=== PATIENT | female | born 1970 | race African-American/Black ===

== ENCOUNTER 2017-01-07 17:10 | Emergency (ER) | payer OTHER ==
[2017-01-07] MEDS ORDERED: PREDNISONE 20 MG TABLET PO ONE (18:18)
--- NOTE | 2017-01-07 18:33 | ER Document Report ---
ED Medical Screen (RME) - General Chief Complaint: Facial Swelling Stated Complaint: TROUBLE SWALLOWING Mode of Arrival: Ambulatory Information source: Patient Notes: 46 y/o F presents to ED c/o right sided facial swelling. Reports has abscessed tooth which she was seen by dentist and prescribed course of Clindamycin which she states has been taking as prescribed but swelling seems to be worsening. I have greeted and performed a rapid initial assessment of this patient. A comprehensive ED assessment and evaluation of the patient, analysis of test results and completion of the medical decision making process will be conducted by additional ED providers. TRAVEL OUTSIDE OF THE [place] IN LAST 30 DAYS: No - Related Data Allergies/Adverse Reactions: aspirin [Aspirin] Allergy (Verified 01/07/17 18:16) Past Medical History - Social History Chew tobacco use (# tins/day): No Frequency of alcohol use: None Drug Abuse: None Renal/ Medical History: Denies: Hx Peritoneal Dialysis Past Surgical History: Reports: Hx Section, Hx Cholecystectomy - Immunizations Immunizations up to date: No Hx Diphtheria, Pertussis, Tetanus Vaccination: Yes Physical Exam - Vital signs Vitals: Temp Pulse Resp BP Pulse Ox 98.2 F 104 H 16 146/70 H 100 01/07/17 18:14 01/07/17 18:14 01/07/17 18:14 01/07/17 18:14 01/07/17 18:14 - General General appearance: Appears well, Alert In distress: None - Respiratory Respiratory status: No respiratory distress Breath sounds: Normal Course - Vital Signs Vital signs: Temp Pulse Resp BP Pulse Ox 98.2 F 104 H 16 146/70 H 100 01/07/17 18:14 01/07/17 18:14 01/07/17 18:14 01/07/17 18:14 01/07/17 18:14
[2017-01-07 18:43] LABS: ABSOLUTE BASOPHILS # (AUTO) 0.1 10^3/uL (0.0-0.2); ABSOLUTE EOSINOPHILS # (AUTO) 0.1 10^3/uL (0.0-0.6); ABSOLUTE LYMPHOCYTES (AUTO) 3.5 10^3/uL (0.5-4.7); ABSOLUTE MONOCYTES (AUTO) 0.9 10^3/uL (0.1-1.4); ABSOLUTE NEUT (AUTO) 9.6 10^3/uL (1.7-8.2); BASOPHILS % (AUTO) 0.5 % (0-2); EOSINOPHILS % (AUTO) 0.4 % (0-6); HEMATOCRIT 34.6 % (36.0-47.0); HEMOGLOBIN 10.7 g/dL (12.0-15.5); HGB HCT DIFFERENCE -2.5; LYMPHOCYTES % (AUTO) 24.6 % (13-45); MEAN CORPUSCULAR HGB CONC 30.8 g/dL (32.0-36.0); MEAN CORPUSCULAR VOLUME 75 fl (80-97); MONOCYTES % (AUTO) 6.5 % (3-13); RED BLOOD COUNT 4.64 10^6/uL (3.72-5.28); RED CELL DISTRIBUTION WIDTH 18.8 % (11.5-14.0); WHITE BLOOD COUNT 14.2 10^3/uL (4.0-10.5)
[2017-01-07 19:00] LABS: ALANINE AMINOTRANSFERASE 24 U/L (9-52); ALBUMIN 4.9 g/dL (3.5-5.0); ALKALINE PHOSPHATASE 86 U/L (38-126); ANION GAP 15 (5-19); ASPARTATE AMINO TRANSFERASE 20 U/L (14-36); BILIRUBIN,TOTAL 0.7 mg/dL (0.2-1.3); BLOOD UREA NITROGEN 4 mg/dL (7-20); CALCIUM 10.4 mg/dL (8.4-10.2); CARBON DIOXIDE 22 mmol/L (22-30); CHLORIDE 101 mmol/L (98-107); CREATININE RESULT 0.57 mg/dL (0.52-1.25); GLUCOSE 192 mg/dL (75-110); POTASSIUM 4.1 mmol/L (3.6-5.0); SODIUM 138.4 mmol/L (137-145); TOTAL PROTEIN 8.5 g/dL (6.3-8.2)
[2017-01-07 19:35] LABS: APPEARANCE,URINE CLEAR; BILIRUBIN,URINE NEGATIVE (NEGATIVE); GLUCOSE, URINE 150 mg/dL (NEGATIVE); KETONES,URINE NEGATIVE (NEGATIVE); LEUKOCYTE ESTERASE,URINE NEGATIVE (NEGATIVE); NITRITE,URINE NEGATIVE (NEGATIVE); PROTEIN,URINE NEGATIVE (NEGATIVE); URINE SPECIFIC GRAVITY 1.002; UROBILINOGEN,URINE NEGATIVE mg/dL (<2.0)
[2017-01-07] MEDS ORDERED: CLINDAMYCIN PHOSPHATE INJ 300 MG/2 ML SDV IM ONE (20:30)
--- NOTE | 2017-01-07 20:31 | ER Document Report ---
ED Oral Problem <DARNELL MARI - Last Filed: 01/07/17 20:33> - General Mode of Arrival: Ambulatory Information source: Patient TRAVEL OUTSIDE OF THE [place] IN LAST 30 DAYS: No - HPI Patient complains to provider of: Swelling of face - right Onset: This morning Associated symptoms: Other - see above <MATY CHAMORRO - Last Filed: 01/07/17 23:51> - General Chief Complaint: Facial Swelling Stated Complaint: TROUBLE SWALLOWING Notes: 46 year old female presents to the ED complaining of an abscess that presented this morning secondary to chipping her right upper incisor yesterday while eating ribs. Patient reports that the pain started yesterday, but she woke up today with the abscess. The patient was seen by her dentist today and was prescribed Clindamycin. Dentist instructed the patient to finish her antibiotic course and then return to have the tooth extracted. Patient reports that since she was given steroids, her facial swelling has decreased dramatically. (MATY CHAMORRO) - Related Data Allergies/Adverse Reactions: aspirin [Aspirin] Allergy (Verified 01/07/17 18:16) Past Medical History - General Information source: Patient - Social History Smoking Status: Current Every Day Smoker Chew tobacco use (# tins/day): No Frequency of alcohol use: None Drug Abuse: None Family History: Reviewed & Not Pertinent Patient has suicidal ideation: No Patient has homicidal ideation: No - Medical History Medical History: Negative Renal/ Medical History: Denies: Hx Peritoneal Dialysis Past Surgical History: Reports: Hx Section, Hx Cholecystectomy - Immunizations Immunizations up to date: No Hx Diphtheria, Pertussis, Tetanus Vaccination: Yes <MATY CHAMORRO - Last Filed: 01/07/17 23:51> Review of Systems - Review of Systems Constitutional: No symptoms reported EENT: See HPI, Other - right facial swelling secondary to chipped right upper incisor tooth Cardiovascular: No symptoms reported Respiratory: No symptoms reported Gastrointestinal: No symptoms reported Genitourinary: No symptoms reported Female Genitourinary: No symptoms reported Musculoskeletal: No symptoms reported Skin: No symptoms reported Hematologic/Lymphatic: No symptoms reported Neurological/Psychological: No symptoms reported -: Yes All other systems reviewed and negative <MATY CHAMORRO - Last Filed: 01/07/17 23:51> Physical Exam <DARNELL MARI - Last Filed: 01/07/17 20:33> - General General appearance: Alert In distress: None - HEENT Head: Atraumatic, Other - Right facial swelling with no fluctuance, active drainage, or active drooling.. No: Normocephalic Eyes: Normal Extraocular movements intact: Yes Pupils: PERRL Mouth/Lips: Other - Right lateral upper incisor is chipped. Neck: Normal, Other - No trismus - Respiratory Respiratory status: No respiratory distress Breath sounds: Normal. No: Stridor - Cardiovascular Rhythm: Regular Heart sounds: Normal auscultation - Abdominal Inspection: Normal - Back Back: Normal - Extremities General upper extremity: Normal inspection, Normal ROM General lower extremity: Normal inspection, Normal ROM - Neurological Neuro grossly intact: Yes Cognition: Normal Orientation: AAOx4 Ramy Coma Scale Eye Opening: Spontaneous Ramy Coma Scale Verbal: Oriented [place] Coma Scale Motor: Obeys Commands [place] Coma Scale Total: 15 Speech: Normal - Psychological Associated symptoms: Normal affect, Normal mood - Skin Skin Temperature: Warm Skin Moisture: Dry Skin Color: Normal <MATY CHAMORRO - Last Filed: 01/07/17 23:51> - Vital signs Vitals: Temp Pulse Resp BP Pulse Ox 98.2 F 104 H 16 146/70 H 100 01/07/17 18:14 01/07/17 18:14 01/07/17 18:14 01/07/17 18:14 01/07/17 18:14 (DARNELL MARI) (MATY CHAMORRO) Course - Laboratory Result Diagrams: 01/07/17 18:30 01/07/17 18:30 <DARNELL MARI - Last Filed: 01/07/17 20:33> - Laboratory Result Diagrams: 01/07/17 18:30 01/07/17 18:30 <MATY CHAMORRO - Last Filed: 01/07/17 23:51> - Re-evaluation Re-evalutation: 01/07/17 20:31 I personally performed the services described in the documentation, reviewed and edited the documentation which was dictated to my scribe in my presence, and it accurately records my words and actions. Patient seen and evaluated in the emergency Department chief complaint of dental abscess. Patient started having a toothache yesterday when saw her dentist today he started her on clindamycin she's taken 2 doses of that she went home took a nap woke up her face was swollen. She wanted to make sure nothing was problematic with the swelling. She had been given prednisone by the [facility] provider prior to this. On examination she is well-appearing nontoxic in no acute distress the chart says trouble swallowing she doesn't have any trouble swallowing difficulty breathing respiratory distress trismus stridor or drooling. She has a localized facial swelling without identifiable abscess drainage she is well-appearing nontoxic there is no concern for spreading into the airway. Gave her IM injection of clindamycin discharged on the antibiotics that she's on follow-up with a dentist as directed and discussed reasons for ED return sooner (DARNELL MARI) - Vital Signs Vital signs: Temp Pulse Resp BP Pulse Ox 97.6 F 88 18 115/88 H 96 01/07/17 21:35 01/07/17 21:35 01/07/17 21:35 01/07/17 21:35 01/07/17 21:35 (DARNELL MARI) (MATY CHAMORRO) - Laboratory Laboratory results interpreted by nd: 01/07/17 01/07/17 01/07/17 18:30 18:30 19:24 WBC 14.2 H Hgb 10.7 L Hct 34.6 L MCV 75 L MCH 23.0 L MCHC 30.8 L RDW 18.8 H Absolute Neutrophils 9.6 H BUN 4 L Glucose 192 H Calcium 10.4 H Total Protein 8.5 H Urine Glucose (UA) 150 H (DARNELL MARI) (MATY CHAMORRO) Discharge <DARNELL MARI - Last Filed: 01/07/17 20:33> <MATY CHAMORRO - Last Filed: 01/07/17 23:51> - Discharge Clinical Impression: Dental abscess Condition: Stable Disposition: HOME, SELF-CARE Instructions: Abscess ([facility]) Additional Instructions: Abscess You have an abscess (boil). This a pus-forming infection, usually due to staph. Some boils may be left to drain on their own, but most require lancing. From the time the tender lump first appears, it may be three or four days before the abscess is ready to carolann. Local heat and rest help at this stage of treatment. An antibiotic may prevent spread of the infection. Once the abscess is opened, packing may be placed into it. This is done so pus is not sealed inside by premature closure of the cavity. The packing will be removed at your follow-up visit or you may be advised to remove it yourself at home. Sometimes this packing must be replaced a few times during healing. The wound will heal with surprisingly little scar. Depending on the size and location of an abscess, healing can take one to four weeks. You may shower and wash the area around the incision site two or three times a day. Antibiotics may be prescribed, but are usually not necessary after an abscess has been drained. If you develop fever, chilling, worsening pain, or increasing swelling in the area, call the doctor or return immediately. Operative dental physician as prescribed return for increasing worsening or new symptoms Forms: Return to Work Scribe Documentation - Scribe Written by Venancio:: Venancio Pfeiffer, 01/07/2017 2215 acting as scribe for :: Ghassan <MATY CHAMORRO - Last Filed: 01/07/17 23:51>
[2017-01-07 21:41] VITALS: BP 115/88
== END 2017-01-07 21:30 | disposition home or self-care (01) ==
LOC: ER 17:10
DX: K04.7 Periapical abscess without sinus (principal); R22.0 Localized swelling, mass and lump, head; F17.210 Nicotine dependence, cigarettes, uncomplicated
CPT/HCPCS: 99283; 96372; 36415; 85025; 80053; 81001; J7512

== ENCOUNTER 2017-05-07 16:39 | Emergency (ER) | payer OTHER ==
--- NOTE | 2017-05-07 17:37 | ER Document Report ---
ED Medical Screen (RME) - General Chief Complaint: Nausea/Vomiting/Diarrhea Stated Complaint: STOMACH PAIN Time Seen by Provider: 05/07/17 17:29 Notes: The patient is a 46-year-old female who presents with intermittent mid abdominal pain for the past 2 weeks. She is also having nausea and nonbloody vomiting with about 3 episodes of watery diarrhea a day. She is drinking Pedialyte and eating crackers for the past 2 weeks. PE: soft, non-tender abdomen, normal bowel sounds I have greeted and performed a rapid initial assessment of this patient. A comprehensive ED assessment and evaluation of the patient, analysis of test results and completion of the medical decision making process will be conducted by additional ED providers. TRAVEL OUTSIDE OF THE [place] IN LAST 30 DAYS: No - Related Data Allergies/Adverse Reactions: aspirin [Aspirin] Allergy (Verified 05/07/17 17:00) Home Medications: Current Home Medications No Home Medications 05/07/17 [History] Past Medical History Renal/ Medical History: Denies: Hx Peritoneal Dialysis Past Surgical History: Reports: Hx Section, Hx Cholecystectomy - Immunizations Immunizations up to date: No Hx Diphtheria, Pertussis, Tetanus Vaccination: Yes Physical Exam - Vital signs Vitals: Temp Pulse Resp BP Pulse Ox 98.2 F 92 16 141/66 H 100 05/07/17 17:00 05/07/17 17:00 05/07/17 17:00 05/07/17 17:00 05/07/17 17:00 Course - Vital Signs Vital signs: Temp Pulse Resp BP Pulse Ox 98.2 F 92 16 141/66 H 100 05/07/17 17:00 05/07/17 17:00 05/07/17 17:00 05/07/17 17:00 05/07/17 17:00
[2017-05-07 18:09] LABS: ABSOLUTE EOSINOPHILS # (AUTO) 0.1 10^3/uL (0.0-0.6); ABSOLUTE LYMPHOCYTES (AUTO) 3.1 10^3/uL (0.5-4.7); ABSOLUTE MONOCYTES (AUTO) 0.6 10^3/uL (0.1-1.4); ABSOLUTE NEUT (AUTO) 5.8 10^3/uL (1.7-8.2); BASOPHILS % (AUTO) 0.4 % (0-2); EOSINOPHILS % (AUTO) 1.2 % (0-6); HEMATOCRIT 33.6 % (36.0-47.0); HEMOGLOBIN 10.3 g/dL (12.0-15.5); HGB HCT DIFFERENCE -2.7; MEAN CORPUSCULAR HEMOGLOBIN 22.3 pg (27.0-33.4); MEAN CORPUSCULAR HGB CONC 30.8 g/dL (32.0-36.0); MEAN CORPUSCULAR VOLUME 73 fl (80-97); MONOCYTES % (AUTO) 6.3 % (3-13); RED BLOOD COUNT 4.63 10^6/uL (3.72-5.28); RED CELL DISTRIBUTION WIDTH 19.5 % (11.5-14.0); SEGMENTED NEUTROPHILS % (AUTO) 60.1 % (42-78); WHITE BLOOD COUNT 9.6 10^3/uL (4.0-10.5)
[2017-05-07 18:25] LABS: ALANINE AMINOTRANSFERASE 37 U/L (9-52); ALBUMIN 4.5 g/dL (3.5-5.0); ALKALINE PHOSPHATASE 79 U/L (38-126); ANION GAP 14 (5-19); ASPARTATE AMINO TRANSFERASE 31 U/L (14-36); BILIRUBIN,DIRECT 0.3 mg/dL (0.0-0.4); BILIRUBIN,TOTAL 0.5 mg/dL (0.2-1.3); BLOOD UREA NITROGEN 4 mg/dL (7-20); CARBON DIOXIDE 25 mmol/L (22-30); CHLORIDE 101 mmol/L (98-107); CREATININE RESULT 0.64 mg/dL (0.52-1.25); GLUCOSE 126 mg/dL (75-110); LIPASE 35.9 U/L (23-300); POTASSIUM 4.3 mmol/L (3.6-5.0); TOTAL PROTEIN 8.4 g/dL (6.3-8.2)
[2017-05-07 18:36] LABS: APPEARANCE,URINE TURBID; BILIRUBIN,URINE NEGATIVE (NEGATIVE); GLUCOSE, URINE NEGATIVE (NEGATIVE); KETONES,URINE TRACE mg/dL (NEGATIVE); LEUKOCYTE ESTERASE,URINE TRACE (NEGATIVE); NITRITE,URINE NEGATIVE (NEGATIVE); PROTEIN,URINE 30 mg/dL (NEGATIVE); URINE SPECIFIC GRAVITY 1.031; UROBILINOGEN,URINE NEGATIVE mg/dL (<2.0)
--- NOTE | 2017-05-07 19:19 | ER Document Report ---
ED GI/ - General Chief Complaint: Nausea/Vomiting/Diarrhea Stated Complaint: STOMACH PAIN Time Seen by Provider: 05/07/17 17:29 Mode of Arrival: Ambulatory Information source: Patient TRAVEL OUTSIDE OF THE [place] IN LAST 30 DAYS: No - HPI Patient complains to provider of: Abdominal pain, Diarrhea Onset: Other - 2 weeks Timing/Duration: Persistent, Waxing and waning Quality of pain: Achy, Cramping Severity at maximum: Moderate Severity in ED: Moderate Pain Level: 2 Associated symptoms: Nausea, Vomiting Notes: 05/07/17 19:14 Patient is a 46-year-old female who presents to the emergency room complaining of crampy abdominal pain with diarrhea that has been going on for 2 weeks, she denies any blood in her diarrhea, just states it is liquid in nature, she does have intermittent vomiting at times, but denies any fever, no dysuria, sick contacts, no questionable food intake, no recent antibiotic use, no recent traveling - Related Data Allergies/Adverse Reactions: aspirin [Aspirin] Allergy (Verified 05/07/17 17:00) Past Medical History - General Information source: Patient - Social History Smoking Status: Current Every Day Smoker Chew tobacco use (# tins/day): No Frequency of alcohol use: Occasional Drug Abuse: None Family History: Reviewed & Not Pertinent Patient has suicidal ideation: No Patient has homicidal ideation: No Renal/ Medical History: Denies: Hx Peritoneal Dialysis Past Surgical History: Reports: Hx Section, Hx Cholecystectomy, Hx Tubal Ligation - Immunizations Immunizations up to date: No Hx Diphtheria, Pertussis, Tetanus Vaccination: Yes Review of Systems - Review of Systems Constitutional: No symptoms reported EENT: No symptoms reported Cardiovascular: No symptoms reported Respiratory: No symptoms reported Gastrointestinal: See HPI Genitourinary: No symptoms reported Female Genitourinary: No symptoms reported Musculoskeletal: No symptoms reported Skin: No symptoms reported Hematologic/Lymphatic: No symptoms reported Neurological/Psychological: No symptoms reported -: Yes All other systems reviewed and negative Physical Exam - Vital signs Vitals: Temp Pulse Resp BP Pulse Ox 98.2 F 92 16 141/66 H 100 05/07/17 17:00 05/07/17 17:00 05/07/17 17:00 05/07/17 17:00 05/07/17 17:00 Interpretation: Normal - General General appearance: Appears well, Alert - HEENT Head: Normocephalic, Atraumatic Eyes: Normal Pupils: PERRL - Respiratory Respiratory status: No respiratory distress Chest status: Nontender Breath sounds: Normal Chest palpation: Normal - Cardiovascular Rhythm: Regular Heart sounds: Normal auscultation Murmur: No - Abdominal Inspection: Normal Distension: No distension Bowel sounds: Normal Tenderness: Tender - Suprapubic Organomegaly: No organomegaly - Back Back: Normal, Nontender - Extremities General upper extremity: Normal inspection, Nontender, Normal color, Normal ROM , Normal temperature General lower extremity: Normal inspection, Nontender, Normal color, Normal ROM , Normal temperature, Normal weight bearing. No: Abdoulaye's sign - Neurological Neuro grossly intact: Yes Cognition: Normal Orientation: AAOx4 Ramy Coma Scale Eye Opening: Spontaneous [place] Coma Scale Verbal: Oriented [place] Coma Scale Motor: Obeys Commands [place] Coma Scale Total: 15 Speech: Normal Motor strength normal: LUE, RUE, LLE, RLE Sensory: Normal - Psychological Associated symptoms: Normal affect, Normal mood - Skin Skin Temperature: Warm Skin Moisture: Dry Skin Color: Normal Course - Re-evaluation Re-evalutation: 05/07/17 19:16 Patient lab findings were discussed with patient at bedside which are consistent with urinary tract infection, she unfortunately was not able to provide us with a stool sample while in the emergency room, he will be started on antibiotics for treatment of the urinary tract infection and advised to follow-up with a primary care provider or return if symptoms worsen, patient acknowledges understanding and agreement with this plan - Vital Signs Vital signs: Temp Pulse Resp BP Pulse Ox 98.2 F 92 16 141/66 H 100 05/07/17 17:00 05/07/17 17:00 05/07/17 17:00 05/07/17 17:00 05/07/17 17:00 - Laboratory Result Diagrams: 05/07/17 17:45 05/07/17 17:45 Laboratory results interpreted by me: 05/07/17 05/07/17 05/07/17 17:45 17:45 17:45 Hgb 10.3 L Hct 33.6 L MCV 73 L MCH 22.3 L MCHC 30.8 L RDW 19.5 H BUN 4 L Glucose 126 H Total Protein 8.4 H Urine Protein 30 H Urine Ketones TRACE H Ur Leukocyte Esterase TRACE H Discharge - Discharge Clinical Impression: Urinary tract infection Qualifiers: Urinary tract infection type: site unspecified Hematuria presence: without hematuria Qualified Code(s): N39.0 - Urinary tract infection, site not specified Diarrhea Qualifiers: Diarrhea type: unspecified type Qualified Code(s): R19.7 - Diarrhea, unspecified Condition: Stable Disposition: HOME, SELF-CARE Instructions: Antinausea Medication ([facility]), Diarrhea, Nonspecific ([facility]), Urinary Tract Infection ([facility]) Additional Instructions: Follow up with your primary care provider in one to 2 days. Return to the emergency room immediately if symptoms worsen or any additional concerns. Prescriptions: Ciprofloxacin HCl [Cipro 500 mg Tablet] 500 mg PO BID #20 tablet Ondansetron [Zofran Odt 4 mg Tablet] 1 - 2 tab PO Q4H #10 tab.rapdis Forms: Return to Work
[2017-05-07] MEDS ORDERED: ONDANSETRON ODT 4 MG TAB (6 TAB/DSPK) PO PRN (19:20)
[2017-05-07] MEDS ORDERED: CIPROFLOXACIN HCL 500 MG TABLET PO ONE (19:20)
[2017-05-07 21:08] VITALS: BP 136/72
== END 2017-05-07 19:34 | disposition home or self-care (01) ==
LOC: ER 16:39
DX: N39.0 Urinary tract infection, site not specified (principal); R19.7 Diarrhea, unspecified; R11.2 Nausea with vomiting, unspecified; R10.9 Unspecified abdominal pain; F17.200 Nicotine dependence, unspecified, uncomplicated; Z88.6 Allergy status to analgesic agent; Z90.49 Acquired absence of other specified parts of digestive tract; Z98.51 Tubal ligation status
CPT/HCPCS: 36415; 80053; 81001; 83690; 85025; 99284

== ENCOUNTER 2018-07-17 11:44 | Emergency (ER) | payer OTHER ==
[2018-07-17] MEDS ORDERED: ONDANSETRON HCL INJ/PF 4 MG/2 ML SDV IV ONE (12:53)
[2018-07-17] MEDS ORDERED: RINGERS SOLUTION,LACTATED 1,000 ML IV ONE (12:53)
--- NOTE | 2018-07-17 12:54 | ER Document Report ---
ED GI/ - General Chief Complaint: Nausea/Vomiting/Diarrhea Stated Complaint: ABDOMINAL PAIN Time Seen by Provider: 07/17/18 12:52 Mode of Arrival: Ambulatory Information source: Patient Notes: Patient presents complaining of generalized abdominal pain with nausea vomiting and diarrhea for the past month off and on. She states she is vomited twice today and has not had any additional diarrhea after taking loperamide earlier this morning. Patient states that she has had a generalized cramping to the abdomen. Patient states she has taken penicillin about 3 weeks ago but only for a few days. Patient denies any recent travel. TRAVEL OUTSIDE OF THE [place] IN LAST 30 DAYS: No - HPI Patient complains to provider of: Abdominal pain, Diarrhea, Vomiting Onset: Other - 1 month Timing/Duration: Persistent Quality of pain: Cramping Pain Level: 1 Location: Other - Generalized abdomen Associated symptoms: Diarrhea, Nausea, Vomiting. denies: Blood in emesis, Blood in stool, Constipation, Urinary hesitancy, Urinary frequency, Urinary retention, Urinary urgency Exacerbated by: Denies Relieved by: Denies Similar symptoms previously: No Recently seen / treated by doctor: No - Related Data Allergies/Adverse Reactions: aspirin [Aspirin] Allergy (Verified 07/17/18 11:47) Past Medical History - General Information source: Patient - Social History Smoking Status: Current Every Day Smoker Smoking Education Provided: Yes Drug Abuse: None Occupation: audit specialist Family History: Reviewed & Not Pertinent - Medical History Medical History: Negative Renal/ Medical History: Denies: Hx Peritoneal Dialysis Past Surgical History: Reports: Hx Section, Hx Cholecystectomy, Hx Tubal Ligation - Immunizations Immunizations up to date: No Hx Diphtheria, Pertussis, Tetanus Vaccination: Yes Review of Systems - Review of Systems Constitutional: No symptoms reported. denies: Fever, Recent illness EENT: No symptoms reported Cardiovascular: No symptoms reported. denies: Chest pain Respiratory: No symptoms reported. denies: Cough, Short of breath Gastrointestinal: Abdominal pain, Diarrhea, Nausea, Vomiting. denies: Blood streaked bowels Genitourinary: No symptoms reported. denies: Dysuria, Flank pain Female Genitourinary: No symptoms reported Musculoskeletal: No symptoms reported. denies: Back pain Skin: No symptoms reported Hematologic/Lymphatic: No symptoms reported Neurological/Psychological: No symptoms reported Physical Exam - Vital signs Vitals: Temp Pulse Resp BP Pulse Ox 98.4 F 95 16 140/79 H 100 07/17/18 12:34 07/17/18 12:34 07/17/18 12:34 07/17/18 12:34 07/17/18 12:34 - General General appearance: Appears well, Alert In distress: None - HEENT Head: Normocephalic, Atraumatic Eyes: Normal Conjunctiva: Normal Nasal: Normal Mouth/Lips: Normal Mucous membranes: Normal Neck: Normal, Supple. No: Lymphadenopathy - Respiratory Respiratory status: No respiratory distress Chest status: Nontender Breath sounds: Normal. No: Rales, Rhonchi, Stridor, Wheezing Chest palpation: Normal - Cardiovascular Rhythm: Regular Heart sounds: S1 appreciated, S2 appreciated Murmur: No - Abdominal Inspection: Normal Distension: No distension Bowel sounds: Normal Tenderness: Tender - Generalized abdominal tenderness Organomegaly: No organomegaly - Back Back: Normal, Nontender. No: CVA tenderness - Extremities General upper extremity: Normal inspection, Normal ROM General lower extremity: Normal inspection, Normal ROM - Neurological Neuro grossly intact: Yes Cognition: Normal Ramy Coma Scale Eye Opening: Spontaneous Ramy Coma Scale Verbal: Oriented [place] Coma Scale Motor: Obeys Commands [place] Coma Scale Total: 15 - Psychological Associated symptoms: Normal affect, Normal mood - Skin Skin Temperature: Warm Skin Moisture: Dry Skin Color: Normal Course - Re-evaluation Re-evalutation: 07/17/18 15:51 Patient's abdomen soft, nontender. Patient denies any nausea at this time. Patient has not had any diarrhea during ER stay. Patient states symptoms have been going on for the past month. Patient without any electrolyte abnormality. Patient encouraged to follow-up with GI specialist for further evaluation. Patient presents with abdominal pain without signs of peritonitis or other life- threatening or serious etiology. Patient appears stable for discharge and has been instructed to return immediately if the symptoms worsen in any way, or in 8 -12 hours if not improved for reevaluation. The patient has been instructed to return if the symptoms worsen or change in any way. - Vital Signs Vital signs: Temp Pulse Resp BP Pulse Ox 98.6 F 82 16 120/62 98 07/17/18 16:04 07/17/18 16:04 07/17/18 12:34 07/17/18 16:04 07/17/18 16:04 - Laboratory Result Diagrams: 07/17/18 13:35 07/17/18 13:35 Laboratory results interpreted by me: 07/17/18 07/17/18 13:35 13:35 Hgb 11.3 L Hct 35.9 L MCV 72 L MCH 22.7 L MCHC 31.4 L RDW 20.4 H Plt Count 718 H BUN 2 L Glucose 114 H Total Protein 8.4 H Labs- Entire Visit 07/17/18 07/17/18 07/17/18 13:35 13:35 13:35 WBC 9.0 RBC 4.96 Hgb 11.3 L Hct 35.9 L MCV 72 L MCH 22.7 L MCHC 31.4 L RDW 20.4 H Plt Count 718 H Seg Neutrophils % 54.3 Lymphocytes % 39.3 Monocytes % 4.7 Eosinophils % 0.7 Basophils % 1.0 Absolute Neutrophils 4.9 Absolute Lymphocytes 3.5 Absolute Monocytes 0.4 Absolute Eosinophils 0.1 Absolute Basophils 0.1 Sodium 139.9 Potassium 4.2 Chloride 101 Carbon Dioxide 26 Anion Gap 13 BUN 2 L Creatinine 0.52 Est GFR ( Amer) > 60 Est GFR (Non-Af Amer) > 60 Glucose 114 H Calcium 10.2 Total Bilirubin 0.4 Direct Bilirubin 0.3 Neonat Total Bilirubin Not Reportable Neonat Direct Bilirubin Not Reportable Neonat Indirect Bili Not Reportable AST 29 ALT 28 Alkaline Phosphatase 67 Total Protein 8.4 H Albumin 4.7 Lipase 61.0 Serum HCG, Qual NEGATIVE Discharge - Discharge Clinical Impression: Vomiting and diarrhea Condition: Stable Disposition: HOME, SELF-CARE Instructions: Diarrhea, Nonspecific ([facility]), Vomiting ([facility]) Additional Instructions: Return immediately for any new or worsening symptoms Followup with your primary care provider, call tomorrow to make a followup appointment Follow-up with a cut off saw operator metal for further evaluation, call tomorrow for an appointment Obtain a stool specimen and bring to the lab for additional testing. Prescriptions: Ondansetron HCl [Zofran 4 mg Tablet] 1 - 2 tab PO Q6 PRN #15 tablet PRN Reason: Forms: Follow-Up Laboratory Testing, Smoking Cessation Education, Return to Work Referrals: [facility] [Provider Group] - Follow up as needed BRAYAN JJ MD [ACTIVE STAFF] - Follow up as needed BABITA MADRIGAL MD [ACTIVE STAFF] - Follow up as needed TAWANA PINZON MD [NO LOCAL MD] - Follow up as needed
[2018-07-17 13:57] LABS: ABSOLUTE BASOPHILS # (AUTO) 0.1 10^3/uL (0.0-0.2); ABSOLUTE EOSINOPHILS # (AUTO) 0.1 10^3/uL (0.0-0.6); ABSOLUTE LYMPHOCYTES (AUTO) 3.5 10^3/uL (0.5-4.7); ABSOLUTE MONOCYTES (AUTO) 0.4 10^3/uL (0.1-1.4); ABSOLUTE NEUT (AUTO) 4.9 10^3/uL (1.7-8.2); EOSINOPHILS % (AUTO) 0.7 % (0-6); HEMATOCRIT 35.9 % (36.0-47.0); HEMOGLOBIN 11.3 g/dL (12.0-15.5); LYMPHOCYTES % (AUTO) 39.3 % (13-45); MEAN CORPUSCULAR HEMOGLOBIN 22.7 pg (27.0-33.4); MEAN CORPUSCULAR HGB CONC 31.4 g/dL (32.0-36.0); MEAN CORPUSCULAR VOLUME 72 fl (80-97); MONOCYTES % (AUTO) 4.7 % (3-13); PLATELET COUNT 718 10^3/uL (150-450); RED BLOOD COUNT 4.96 10^6/uL (3.72-5.28); RED CELL DISTRIBUTION WIDTH 20.4 % (11.5-14.0); SEGMENTED NEUTROPHILS % (AUTO) 54.3 % (42-78); TOTAL CELLS COUNTED % (AUTO) 100 %
[2018-07-17 14:13] LABS: ALANINE AMINOTRANSFERASE 28 U/L (9-52); ALBUMIN 4.7 g/dL (3.5-5.0); ALKALINE PHOSPHATASE 67 U/L (38-126); ANION GAP 13 (5-19); ASPARTATE AMINO TRANSFERASE 29 U/L (14-36); BILIRUBIN,DIRECT 0.3 mg/dL (0.0-0.4); BILIRUBIN,TOTAL 0.4 mg/dL (0.2-1.3); BLOOD UREA NITROGEN 2 mg/dL (7-20); CALCIUM 10.2 mg/dL (8.4-10.2); CARBON DIOXIDE 26 mmol/L (22-30); CHLORIDE 101 mmol/L (98-107); GLUCOSE 114 mg/dL (75-110); POTASSIUM 4.2 mmol/L (3.6-5.0); SODIUM 139.9 mmol/L (137-145); TOTAL PROTEIN 8.4 g/dL (6.3-8.2)
[2018-07-17 16:08] VITALS: BP 120/62
== END 2018-07-17 16:23 | disposition home or self-care (01) ==
LOC: ER 11:44
DX: R11.2 Nausea with vomiting, unspecified (principal); R19.7 Diarrhea, unspecified; R10.84 Generalized abdominal pain; F17.200 Nicotine dependence, unspecified, uncomplicated; Z90.49 Acquired absence of other specified parts of digestive tract; Z98.51 Tubal ligation status; Z88.6 Allergy status to analgesic agent
CPT/HCPCS: 99284; 96361; 96374; 36415; 83690; 84703; 85025; 80053; J2405; J7120